=== PATIENT | female | born 1985 | race Caucasian/White ===

== ENCOUNTER 2024-08-18 13:32 | Outpatient (CLI) | payer BC | END 2024-08-18 13:33 | disposition home or self-care (01) | LOC: CSHCT 13:32 | PROVIDERS: ATTEND Surgery | DX: K43.2 Incisional hernia without obstruction or gangrene (principal); K42.9 Umbilical hernia without obstruction or gangrene; K76.0 Fatty (change of) liver, not elsewhere classified | CPT/HCPCS: 74176 ==

== ENCOUNTER 2024-09-04 12:10 | Outpatient (CLI) | payer BC | END 2024-09-04 12:11 | disposition home or self-care (01) | LOC: CSHLAB 12:10 | PROVIDERS: ATTEND Pain Medicine Pain Medicine | DX: Z01.818 Encounter for other preprocedural examination (principal); K43.2 Incisional hernia without obstruction or gangrene | CPT/HCPCS: 93005; 93010 ==

== ENCOUNTER 2024-09-07 08:53 | Observation (INO) | payer BC ==
[2024-09-07] MEDS ORDERED: Heparin 5,000 UNITS/ML VIAL ONE (10:13)
[2024-09-07] MEDS ORDERED: Midazolam HCl 2 mg/2 ml Vial ONE (10:45)
[2024-09-07] MEDS ORDERED: Scopolamine 1 mg/72 hour Patch ONE (10:46)
[2024-09-07] MEDS ORDERED: Lidocaine 4% PF 5 ML AMP ONE (11:38)
[2024-09-07] MEDS ORDERED: PROPOFOL 20 ML ONE (11:38)
[2024-09-07] MEDS ORDERED: fentaNYL 50 mcg/mL 1 mL Vial ONE ×4 (11:38→14:17)
[2024-09-07] MEDS ORDERED: Lidocaine 2% PF 5 ML VIAL ONE (11:41)
[2024-09-07] MEDS ORDERED: Bupivacaine HCl 0.5%/Epinephrine 1:200,000/PF 30 ml Vial ONE (11:42)
[2024-09-07] MEDS ORDERED: Lidocaine 1% PF 5 ML VIAL ONE (11:42)
[2024-09-07] MEDS ORDERED: Dexamethasone 20 MG/5 ML VIAL ONE (11:42)
[2024-09-07] MEDS ORDERED: Clindamycin/D5W 600 mg/50 ml Premix Bag ONE (11:58)
[2024-09-07] MEDS ORDERED: HYDROmorphone 0.5 MG/0.5 ML SYRINGE ONE ×2 (14:46→14:49)
[2024-09-07] MEDS ORDERED: SUGAMMADEX SODIUM 200 MG/2 ML VIAL ONE ×2 (14:58→17:10)
[2024-09-07] MEDS ORDERED: Ondansetron PF 4 MG/2 ML Vial ONE (16:50)
[2024-09-07] MEDS ORDERED: Dexamethasone 4 mg/ml Vial ONE (16:50)
[2024-09-07] MEDS ORDERED: hydrALAZINE 20 MG/ML VIAL SLOW IVP PRN (17:45)
[2024-09-07] MEDS ORDERED: Acetaminophen 325 MG TAB PO PRN (17:45)
[2024-09-07] MEDS ORDERED: Promethazine HCl 25 MG/ML VIAL IM PRN (17:45)
[2024-09-07] MEDS ORDERED: HYDROcodone/Acetaminophen 10/325 mg Tablet PO PRN (17:45)
[2024-09-07] MEDS ORDERED: Ipratropium/Albuterol 3 ML NEB NEB PRN (17:45)
[2024-09-07] MEDS ORDERED: Ondansetron PF 4 MG/2 ML Vial IVP PRN (17:45)
[2024-09-07 18:40] VITALS: BMI 32.9
[2024-09-07] MEDS: Clindamycin/D5W 900 MG in Premix 1 BAG IVPB SCH (20:16)
[2024-09-07] MEDS: Famotidine 20 MG TAB PO SCH (20:16)
[2024-09-07] MEDS: Ketorolac Tromethamine 30 MG (1 mL) VIAL IVP SCH (20:16)
[2024-09-07] MEDS: Morphine 4 MG/ML VIAL SLOW IVP PRN (20:17)
[2024-09-07] MEDS: Sodium Chloride 0.9% 1,000 ML IV SCH (20:36)
[2024-09-07] MEDS: Lisinopril 10 MG TAB PO SCH (22:12)
[2024-09-07] MEDS: Gabapentin 100 MG CAP PO SCH (22:12)
[2024-09-07] MEDS: Calcium Carbonate 500 MG TAB PO SCH (22:13)
[2024-09-07] MEDS: Aripiprazole 2 MG TAB PO SCH (22:13)
[2024-09-07] MEDS: Pantoprazole DR 40 MG TAB PO SCH (22:14)
[2024-09-08] MEDS: Morphine 2 MG/ML VIAL SLOW IVP PRN (01:15)
[2024-09-08] MEDS: Levothyroxine Sodium 100 MCG TAB PO SCH (06:16)
[2024-09-08] MEDS: Levothyroxine Sodium 75 MCG TAB PO SCH (06:16)
[2024-09-08] MEDS: Calcium Carbonate 500 MG TAB PO SCH (08:48)
[2024-09-08] MEDS: Calcitriol 0.25 MCG CAP PO SCH (08:49)
[2024-09-08] MEDS: Enoxaparin 30 MG (0.3 mL) SYRINGE SC SCH (08:52)
[2024-09-08] MEDS ORDERED: Calcitriol 0.25 MCG CAP PO SCH (09:00)
[2024-09-08] MEDS ORDERED: Calcium Carbonate 500 MG TAB PO SCH (09:00)
[2024-09-08] MEDS ORDERED: LEVOTHYROXINE SODIUM 175 MCG PO SCH (09:00)
[2024-09-08 10:51] VITALS: BP 98/55; TEMP 98.2
[2024-09-08] MEDS: HYDROcodone/Acetaminophen 10/325 mg Tablet PO PRN (10:51)
[2024-09-08] MEDS ORDERED: Non-Formulary Medication 1 EACH (Esomeprazole Magnesium [Nexium] 20 MG Capsule.Dr) PO SCH (21:00)
[2024-09-08] MEDS ORDERED: Aripiprazole 2 MG TAB PO SCH (21:00)
[2024-09-08] MEDS ORDERED: Gabapentin 100 MG CAP PO SCH (21:00)
[2024-09-08] MEDS ORDERED: Lisinopril 10 MG TAB PO SCH (21:00)
== END 2024-09-08 12:44 | disposition home or self-care (01) ==
LOC: CSHSDC 08:53 → CSHTELE 09:29
PROVIDERS: ADMIT Surgery; ATTEND Surgery
PROC: 0WUF4JZ Supplement Abdominal Wall with Synthetic Substitute, Percutaneous Endoscopic Approach (ICD-10-PCS; principal; 2024-09-08)
DX: K43.0 Incisional hernia with obstruction, without gangrene (principal); I82.409 Acute embolism and thrombosis of unspecified deep veins of unspecified lower extremity; I10 Essential (primary) hypertension; K21.9 Gastro-esophageal reflux disease without esophagitis; E66.9 Obesity, unspecified; F41.9 Anxiety disorder, unspecified; Z79.890 Hormone replacement therapy; Z90.89 Acquired absence of other organs; Z90.710 Acquired absence of both cervix and uterus; Z88.1 Allergy status to other antibiotic agents; Z79.899 Other long term (current) drug therapy; Z88.0 Allergy status to penicillin; Z86.718 Personal history of other venous thrombosis and embolism; Z98.890 Other specified postprocedural states
CPT/HCPCS: A6258; C1781; C9250; J1100; J1171; J1644; J1650; J1885; J2250; J2272; J2405; J2704; J3010; J3490; J7030; S2900